=== PATIENT | female | born 1965 | race Caucasian/White ===

== ENCOUNTER 2016-04-27 13:47 | Emergency (ER) | payer OTHER ==
[2016-04-27] MEDS ORDERED: SODIUM CHLORIDE 0.9% 500 ML IV STA (15:48)
[2016-04-27 16:15] VITALS: RESP 20
[2016-04-27 16:23] LABS: Basophils # (A) 0.1 k/uL (0-0.2); Basophils % (A) 1 %; CHCM 34.5; Eosinophils # (A) 0.1 k/uL (0-0.7); Eosinophils % (A) 0 %; HCT 44.6 % (34.0-46.0); Luc # (Auto) 0.12; Luc % (Auto) 1; Lymphocytes # (A) 2.3 k/uL (1.0-4.8); Lymphocytes % (A) 21 %; MCH 31.3 pg (25.0-35.0); MCHC 33.6 g/dL (31.0-37.0); MCV 93.1 fL (80.0-100.0); Mean Platelet Volume 8.2; Monocytes # (A) 0.5 k/uL (0-1.0); Monocytes % (A) 5 %; Neutrophils # (A) 7.9 k/uL (1.3-7.7); Neutrophils % (A) 72 %; RBC 4.79 m/uL (3.80-5.40); RDW 13.2 % (11.5-15.5); WBC (Perox) 10.26
[2016-04-27 16:34] LABS: ALT 66 U/L (9-52); AST 45 U/L (14-36); Alkaline Phosphatase 99 U/L (38-126); Amylase 46 U/L (30-110); Anion Gap 18 mmol/L; Blood Urea Nitrogen 15 mg/dL (7-17); Calcium 10.7 mg/dL (8.4-10.2); Carbon Dioxide 26 mmol/L (22-30); Chloride 98 mmol/L (98-107); Glucose 113 mg/dL (74-99); Non-African American GFR(MDRD) >60 (>60 ml/min/1.73 sqM); Potassium 4.3 mmol/L (3.5-5.1); Sodium 142 mmol/L (137-145); Total Bilirubin 0.7 mg/dL (0.2-1.3); Total Protein 8.8 g/dL (6.3-8.2)
--- NOTE | 2016-04-27 17:09 | CT ---
EXAMINATION TYPE: CT abdomen pelvis wo con DATE OF EXAM: 04/27/2016 4:56 PM COMPARISON: NONE HISTORY: generalized pain with nausea CT DLP: 221.3 mGycm Automated exposure control for dose reduction was used. TECHNIQUE: Helical acquisition of images from the lung bases through the pelvis. FINDINGS: Lack of contrast may compromise the exam. LUNG BASES: No significant abnormality is appreciated. No pleural or pericardial effusion. AORTA: No significant abnormality is appreciated. LIVER/GB: No significant abnormality is appreciated. PANCREAS: No significant abnormality is seen. SPLEEN: No significant abnormality is seen. ADRENALS: No significant abnormality is seen. KIDNEYS: No significant abnormality is seen. REPRODUCTIVE ORGANS: No significant abnormality is seen. URINARY BLADDER: No significant abnormality is seen. BOWEL: Nonspecific colonic wall thickening could be due to lack of distention, correlate to exclude colitis, cannot exclude a mucosal lesion on the basis of this exam. The appendix is normal. FREE AIR: No Free Air is visible. ASCITES: None visible. PELVIC ADENOPATHY: None visualized. RETROPERITONEAL ADENOPATHY: No Retroperitoneal Adenopathy visible. OSSEOUS STRUCTURES: Degenerative disc changes in the visualized lumbosacral junction. IMPRESSION: NONCONTRAST EXAM. FINDINGS WITHIN THE COLON IS DESCRIBED. FOLLOW-UP INDICATED.
[2016-04-27] MEDS ORDERED: LEVOFLOXACIN 750 MG TAB PO STA (17:36)
[2016-04-27] MEDS ORDERED: metroNIDAZOLE 500 MG TAB PO STA (17:37)
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
[2016-04-27 17:41] LABS: Appearance,Urine Clear (Clear); Bacteria,Urine Rare /hpf; Bilirubin,Urine Negative (Negative); Glucose,Urine (UA) Negative (Negative); Ketones,Urine 1+ (Negative); Leukocyte Esterase,Urine Negative (Negative); Mucus,Urine Rare /hpf; Nitrite,Urine Negative (Negative); PH, Urine 5.5 (5.0-8.0); Particle Count 2601; Protein,Urine 1+ (Negative); RBC,Urine 4 /hpf (0-5); Specific Gravity,Urine 1.012 (1.001-1.035); Squamous Epithelial Cell,Urine 1 /hpf (0-4); UA Billing (MACRO vs. MICRO) MICRO; Urobilinogen,Urine <2.0 mg/dL (<2.0)
[2016-04-27 17:57] VITALS: PULSE 100; TEMP 98.3
[2016-04-27] MEDS ORDERED: MORPHINE SULFATE 4 MG/ML SYRINGE IV STA (17:58)
[2016-04-27 18:59] VITALS: BP 144/88
== END 2016-04-27 18:59 | disposition home or self-care (01) ==
LOC: EC 13:47
DX: K52.9 Noninfective gastroenteritis and colitis, unspecified (principal); F32.9 Major depressive disorder, single episode, unspecified; F41.0 Panic disorder [episodic paroxysmal anxiety]; F41.9 Anxiety disorder, unspecified; E78.5 Hyperlipidemia, unspecified; Z91.018 Allergy to other foods; Z87.891 Personal history of nicotine dependence; Z79.899 Other long term (current) drug therapy
CPT/HCPCS: 96374; 96361 ×2; 99284; 36415; 80053; 82150; 83690; 85025; 81001; 74176; J2270

== ENCOUNTER → 2016-05-30 | Outpatient (CLI) | payer OTHER ==
--- NOTE | 2016-05-30 16:47 | CT ---
EXAMINATION TYPE: CT abdomen pelvis w con DATE OF EXAM: 05/30/2016 4:33 PM COMPARISON: NONE INDICATION: Patient having right lower quadrant pain for past 2 years, getting worse DLP: 958 mGycm, Automated exposure control for dose reduction was used. CONTRAST: 100 mL of Omnipaque 300. Study performed with Oral Contrast TECHNIQUE: Axial images were obtained from above the diaphragm to the pubic rami in the axial plane a t 5 mm thick sections. Reconstructed images are reviewed on the computer in the coronal plane. FINDINGS: Limited CT sections are obtained the lung bases. The lung bases are clear. Small hiatal hernia is p resent. CT ABDOMEN: Liver: Normal Spleen: Normal Pancreas: Normal Adrenal glands: The adrenal glands are normal. Gallbladder: Normal Kidneys: No masses are evident. No hydronephrosis is present. No cysts are present. Delayed images were obtained through the kidneys, which remain unremarkable. Aorta: Normal Inferior vena cava: Normal. CT PELVIS: Loops of bowel within the abdomen and pelvis are normal. There are loops of bowel which are incom pletely distended or lack oral contrast limiting their evaluation. Appendix: Normal as visualized. Urinary bladder: Normal. Genitourinary structures: Uterus is normal. Adnexal regions are clear. Osseous structures: No suspicious lytic or sclerotic lesions are evident. IMPRESSIONS: 1. Normal abdomen and pelvis.
== END | disposition home or self-care (01) ==
LOC: RADCTMAIN 15:45
PROVIDERS: ATTEND Internal Medicine
DX: K57.92 Diverticulitis of intestine, part unspecified, without perforation or abscess without bleeding (principal)
CPT/HCPCS: 74177; Q9967

== ENCOUNTER → 2017-04-11 | Outpatient (CLI) | payer OTHER ==
--- NOTE | 2017-04-11 14:27 | US ---
EXAMINATION TYPE: US transvaginal DATE OF EXAM: 04/11/2017 COMPARISON: NONE CLINICAL HISTORY: R10.30 Vaginal Bleeding. Right pelvic pain for 1 year. Vaginal bleeding during inte rcourse. Tubal ligation TECHNIQUE: Transvaginal (TV) Date of LMP: unknown EXAM MEASUREMENTS: Uterus: 6.9 x 3.0 x 3.8 cm Endometrial Stripe: 0.25 cm Right Ovary: unable to visualize Left Ovary: unable to visualize 1. Uterus: Retroverted 2. Endometrium: fluid noted within. dense echogenic area = 0.2cm, possibly a focus of air or calcifi cation. No endometrial hyperemia. No endometrial thickening. 3. Right Ovary: Obscured by overlying bowel gas 4. Left Ovary: Obscured by overlying bowel gas 5. Bilateral Adnexa: prominent vascularity bilateral adnexa 6. Posterior cul-de-sac: appears wnl IMPRESSION: 1. Dilated pelvic vasculature suspected to represent pelvic congestion syndrome. Correlate with patie nt's symptoms. 2. Fluid-filled endometrium that can be seen in endometrial atrophy or dysfunctional uterine bleeding . Direct visualization could be performed for further evaluation.
--- NOTE | 2017-04-13 08:23 | MM ---
Reason for exam: screening (asymptomatic). Last mammogram was performed 2 years and 8 months ago. History: Patient is postmenopausal. Physical Findings: A clinical breast exam by your physician is recommended on an annual basis and results should be correlated with mammographic findings. MG Screening Mammo w CAD Bilateral CC and MLO view(s) were taken. Prior study comparison: August 11, 2014, bilateral MG screening mammo w CAD. There are scattered fibroglandular densities. No significant changes when compared with prior studies. ASSESSMENT: Negative, BI-RAD 1 RECOMMENDATION: Routine screening mammogram of both breasts in 1 year.
== END | disposition home or self-care (01) ==
LOC: RADUSWWP 12:56
PROVIDERS: ATTEND Internal Medicine
DX: Z12.31 Encounter for screening mammogram for malignant neoplasm of breast (principal); I99.8 Other disorder of circulatory system; N85.8 Other specified noninflammatory disorders of uterus; R10.30 Lower abdominal pain, unspecified; N93.9 Abnormal uterine and vaginal bleeding, unspecified; Z78.0 Asymptomatic menopausal state
CPT/HCPCS: 76830; 77067

== ENCOUNTER → 2018-11-26 | Outpatient (CLI) | payer OTHER ==
--- NOTE | 2018-11-28 10:14 | MM ---
Reason for exam: screening (asymptomatic). Last mammogram was performed 1 year and 8 months ago. History: Patient is postmenopausal. Physical Findings: A clinical breast exam by your physician is recommended on an annual basis and results should be correlated with mammographic findings. MG Screening Mammo w CAD Bilateral CC and MLO view(s) were taken. Prior study comparison: April 11, 2017, bilateral MG screening mammo w CAD. August 11, 2014, bilateral MG screening mammo w CAD. The breast tissue is almost entirely fat. Finding: There are coarse heterogeneous, grouped/clustered calcifications in the upper outer quadrant, middle position of the right breast. New finding since April 11, 2017 and August 11, 2014. ASSESSMENT: Incomplete: need additional imaging evaluation, BI-RAD 0 RECOMMENDATION: Special view mammogram of the right breast. [facility] will attempt to contact patient to return for supplemental views.
== END ==
LOC: RADMAMWWP 16:20
PROVIDERS: ATTEND Family Medicine
DX: Z12.39 Encounter for other screening for malignant neoplasm of breast (principal)
CPT/HCPCS: 77067

== ENCOUNTER → 2018-12-11 | Outpatient (CLI) | payer OTHER ==
--- NOTE | 2018-12-11 14:53 | MM ---
Reason for exam: additional evaluation requested from abnormal screening. Last mammogram was performed less than 1 month ago. History: Patient is postmenopausal. Physical Findings: Nurse did not find any significant physical abnormalities on exam. MG Work Up Mamm w CAD RT Spot compression CC, spot compression MLO, and LM view(s) were taken of the right breast. Prior study comparison: November 26, 2018, bilateral MG screening mammo w CAD. April 11, 2017, bilateral MG screening mammo w CAD. There are scattered fibroglandular densities. Finding: There are typically benign round calcifications in the upper outer quadrant of the right breast. There is no discrete abnormality. These results were verbally communicated with the patient and result sheet given to the patient on 12/11/18. ASSESSMENT: Probably benign, BI-RAD 3 RECOMMENDATION: Follow-up diagnostic mammogram of the right breast in 6 months. (plus magnification views x 2)
== END | disposition home or self-care (01) ==
LOC: RADMAMWWP 14:06
PROVIDERS: ATTEND Family Medicine
DX: R92.8 Other abnormal and inconclusive findings on diagnostic imaging of breast (principal)
CPT/HCPCS: 77065

== ENCOUNTER → 2019-03-06 | Outpatient (CLI) | payer OTHER ==
--- NOTE | 2019-03-07 00:13 | MR ---
EXAMINATION TYPE: MR wrist RT wo con DATE OF EXAM: 03/06/2019 COMPARISON: None HISTORY: Rt wrist pain Multiplanar multiecho imaging of the right wrist was performed with no contrast. The carpal bones are intact. There is moderate wrist joint effusion. There is narrowing of the radioc arpal joint space. There is a 5 mm cyst in the lateral aspect of the lunate bone. There are small tatum glion cysts on the anterior aspect of the radiocarpal joint. I see no focal bone destruction. There i s no evidence of avascular necrosis. The proximal metacarpals are intact. Flexor tendons are intact. The extensor tendons appear intact. There is no evidence of a fracture. IMPRESSION: Wrist joint effusion with ganglion cysts anteriorly. No fracture. This is consistent with a nonspecif ic synovitis.
== END | disposition home or self-care (01) ==
LOC: RADMRIMAIN 13:51
PROVIDERS: ATTEND Orthopaedic Surgery Hand Surgery
DX: M67.431 Ganglion, right wrist (principal); M25.431 Effusion, right wrist

== ENCOUNTER → 2019-08-27 | Outpatient (CLI) | payer OTHER ==
--- NOTE | 2019-08-28 08:53 | MM ---
Reason for exam: follow-up at short interval from prior study. Last mammogram was performed 8 months ago. History: Patient is postmenopausal and history of other cancer. Physical Findings: Nurse did not find any significant physical abnormalities on exam. MG Diagnostic Mammo RT w CAD CC and MLO view(s) were taken of the right breast. Prior study comparison: December 11, 2018, right breast MG work up mamm w CAD RT. November 26, 2018, bilateral MG screening mammo w CAD. There are scattered fibroglandular densities. Finding: There are typically benign round calcifications in the anterior position of the right breast and new adjacent smaller round calcifications. There is a chronic nodularity in the upper right breast. There is no discrete abnormality. These results were verbally communicated with the patient and result sheet given to the patient on 08/27/19. ASSESSMENT: Benign, BI-RAD 2 RECOMMENDATION: Return to routine screening mammogram schedule for both breasts. Back on schedule.
== END | disposition home or self-care (01) ==
LOC: RADMAMWWP 13:42
PROVIDERS: ATTEND Family Medicine
DX: R92.1 Mammographic calcification found on diagnostic imaging of breast (principal)
CPT/HCPCS: 77065

== ENCOUNTER → 2021-05-06 | Outpatient (CLI) | payer OTHER ==
--- NOTE | 2021-05-10 09:28 | MM ---
Reason for exam: screening (asymptomatic). Last mammogram was performed 1 year and 8 months ago. History: Patient is postmenopausal and history of other cancer. Physical Findings: A clinical breast exam by your physician is recommended on an annual basis and results should be correlated with mammographic findings. MG Screening Mammo w CAD Bilateral CC and MLO view(s) were taken. Prior study comparison: August 27, 2019, right breast MG diagnostic mammo RT w CAD. December 11, 2018, right breast MG work up mamm w CAD RT. There are scattered fibroglandular densities. Stable benign course calcifications right breast. No significant changes when compared with prior studies. ASSESSMENT: Negative, BI-RAD 1 RECOMMENDATION: Routine screening mammogram of both breasts in 1 year.
== END | disposition home or self-care (01) ==
LOC: RADMAMWWP 13:01
PROVIDERS: ATTEND Family Medicine
DX: Z12.31 Encounter for screening mammogram for malignant neoplasm of breast (principal); Z78.0 Asymptomatic menopausal state
CPT/HCPCS: 77067

== ENCOUNTER → 2023-01-22 | Outpatient (CLI) | payer OTHER ==
--- NOTE | 2023-01-22 15:43 | MM ---
Reason for Exam: Additional evaluation requested from prior study. Last mammogram was performed 1 year(s) and 8 month(s) ago. Indicated Problems: Pain of the left side. Patient History: Menarche at age 10. First Full-Term at age 17. Hysterectomy at age 33. Postmenopausal. Other cancer. Risk Values: Emily 5 year model risk: 1.0%. NCI Lifetime model risk: 5.5%. Tissue Density: There are scattered fibroglandular densities. Findings: Analyzed By CAD. No new suspicious mass, architectural distortion, or group of calcification is within either breast. Benign calcifications within the right breast. Overall Assessment: Benign, BI-RAD 2 Management: Screening Mammogram of both breasts in 1 year. A clinical breast exam by your physician is recommended on an annual basis and results should be correlated with mammographic findings. This exam should not preclude additional follow-up of suspicious palpable abnormalities. Results were given to the patient verbally at the time of exam. Note on Emily scores and lifetime risk: 1. A Emily score greater than 3% is considered moderate risk. If this is the case, consider specialist referral to assess eligibility for a risk reducing agent. If overall lifetime risk for the development of breast cancer is 20% or higher, the patient may qualify for future screening with alternating mammogram and breast MRI. Electronically signed and approved by: Vick Ye D.O.
== END | disposition home or self-care (01) ==
LOC: RADMAMWWP 15:23
PROVIDERS: ATTEND Family Medicine
DX: N64.4 Mastodynia (principal); R92.323 Mammographic fibroglandular density, bilateral breasts; Z78.0 Asymptomatic menopausal state
CPT/HCPCS: 77066; G0279; 77062

== ENCOUNTER → 2023-09-20 | Outpatient (CLI) | payer OTHER ==
--- NOTE | 2023-10-07 18:19 | CTL ---
EXAMINATION TYPE: CT Low Dose Lung DATE OF EXAM ORDERED: 09/20/2023 HISTORY: 58-year-old female. Current smoker with 80 pack-year history. Lung cancer screening CT DLP: 82.[address] CTDI: 2.2 mGy Automated exposure control for dose reduction was used. SCREENING VISIT: Baseline COMPARISON: Radiograph 08/18/2014 TECHNIQUE: Low dose computed tomography scan was performed through the chest at 1 mm thick sections a nd reconstructed images in multiple planes at 1 mm and [address] DIAGNOSTIC QUALITY: Satisfactory FINDINGS: Heart normal size with trace anterior pericardial effusion. Aorta normal caliber with conventional chest branching anatomy. No thoracic lymphadenopathy by CT size criteria. Mild emphysematous changes in the lungs. No pleural effusion. No suspicious greater than 4 mm pulmona ry nodule is identified. Minimal strandy atelectasis or scarring in the lower lungs. Visualized upper abdomen shows liver with diminished attenuation suggesting some fatty infiltration. There may be mild wall thickening of the distal thoracic esophagus. Bones: Mild degenerative disc disease mid and lower thoracic spine. IMPRESSION: 1. LungRADS 1, negative. 2. COPD with minimal emphysema. Recommend smoking cessation. 3. There may be mild circumferential soft tissue swelling at the distal esophagus. This may be due to nondistention. Early for any symptoms of potential mild esophagitis. CT LUNG RAD AND CT CHEST RECOMMENDATION: Lung-Rad 1 Negative: Continue annual screening with LDCT in 12 months. S Modifier (other clinically significant findings): None
== END | disposition home or self-care (01) ==
LOC: RADCTMAIN 14:53
PROVIDERS: ATTEND Family Medicine
DX: Z12.2 Encounter for screening for malignant neoplasm of respiratory organs (principal); J43.9 Emphysema, unspecified; J44.9 Chronic obstructive pulmonary disease, unspecified; F17.210 Nicotine dependence, cigarettes, uncomplicated
CPT/HCPCS: 71271